=== PATIENT | male | born 1955 | race Caucasian/White ===

== ENCOUNTER → 2017-12-31 | Outpatient (REF) | payer OTHER | LOC: ZZSENDIN 08:54 | PROVIDERS: ATTEND Family Medicine | DX: M35.3 Polymyalgia rheumatica (principal) | CPT/HCPCS: 85651 ==

== ENCOUNTER → 2018-02-04 | Outpatient (REF) | payer OTHER | LOC: ZZSENDIN 09:03 | PROVIDERS: ATTEND Family Medicine | DX: M35.3 Polymyalgia rheumatica (principal) | CPT/HCPCS: 85651 ==

== ENCOUNTER → 2018-03-11 | Outpatient (REF) | payer OTHER | LOC: ZZSENDIN 09:24 | PROVIDERS: ATTEND Family Medicine | DX: M35.3 Polymyalgia rheumatica (principal) | CPT/HCPCS: 85651 ==

== ENCOUNTER → 2018-04-14 | Outpatient (REF) | payer OTHER | LOC: ZZSENDIN 08:58 | PROVIDERS: ATTEND Family Medicine | DX: M35.3 Polymyalgia rheumatica (principal) | CPT/HCPCS: 85651 ==

== ENCOUNTER → 2018-07-27 | Outpatient (REF) | payer OTHER | LOC: ZZSENDIN 09:02 | PROVIDERS: ATTEND Family Medicine | DX: M35.3 Polymyalgia rheumatica (principal) | CPT/HCPCS: 85651 ==